=== PATIENT | female | born 1980 | race Caucasian/White ===

== ENCOUNTER 2021-04-01 19:55 | Inpatient (IN) ==
[2021-04-01] MEDS ORDERED: 0.9 % Sodium Chloride 250 ML ONE (20:26)
[2021-04-01] MEDS ORDERED: *HR* EPINEPHrine 1 MG/10 ML SYRINGE ONE (20:33)
[2021-04-01 20:34] VITALS: TEMP 0
[2021-04-01 20:40] LABS: Basophils % 0.2 %; Eosinophils % 0.3 %; Hematocrit 38.3 % (35.3-44.9); Hemoglobin 11.6 g/dL (11.5-15.4); Immature Granulocytes % 13.8 % (0-4); Lymphocytes # 5.2 K/mcL (0.6-4.6); Lymphocytes % 38.2 %; Mean Corpuscular HGB Conc 30.3 g/dL (31.6-35.5); Mean Corpuscular Hemoglobin 30.5 pg (28.0-33.3); Mean Corpuscular Volume 100.8 fL (83.0-100.0); Mean Platelet Volume 10.5 fL (9.4-12.4); Monocytes # 0.6 K/mcL (0.0-1.3); Monocytes % 4.3 %; Neutrophils # 5.9 K/mcL (1.6-8.9); Nucleated Red Blood Cells 0.8 /100 WBC (0); Platelet Count 227 K/mcL (140-400); Red Cell Distribution Width 15.3 % (11.5-14.5); Segmented Neutrophils % 43.2 %; White Blood Count 13.6 K/mcL (4.3-11.1)
[2021-04-01] MEDS ORDERED: Amiodarone Premix 360 MG/200 ML BAG IVC ONE (20:40)
[2021-04-01] MEDS ORDERED: *HR* Heparin 10,000 UNIT/10 ML VIAL ONE (20:48)
[2021-04-01] MEDS ORDERED: Heparin 1,000 UNITS/500 mL 500 ML ONE (20:48)
[2021-04-01] MEDS ORDERED: ISOVUE-370 200 ML INFUS..BTL ONE (20:48)
[2021-04-01] MEDS ORDERED: 0.9 % Sodium Chloride 2,000 ML ONE (20:48)
[2021-04-01] MEDS ORDERED: Nitroglycerin 1,000 MCG/5 ML VIAL IV ONE (20:48)
[2021-04-01] MEDS ORDERED: D5% in Water 1,000 ML IVC ONE (20:56)
[2021-04-01] MEDS ORDERED: *HR* Midazolam HCl 2 MG/2 ML VIAL ONE (20:58)
[2021-04-01] MEDS ORDERED: Tirofiban 12.5 MG/250ML 0 MG/0 ML BAG ONE (20:58)
[2021-04-01] MEDS ORDERED: *HR* FentaNYL (PF) 100 MCG/2 ML VIAL ONE (20:58)
[2021-04-01] MEDS ORDERED: D5% in Water 250 ML ONE ×2 (21:09→22:10)
[2021-04-01] MEDS ORDERED: EPINEPHrine 1 MG/ML VIAL ONE ×2 (21:09→22:10)
[2021-04-01] MEDS ORDERED: Sodium Bicarbonate 150 MEQ in D5% in Water 1,000 ML IVC ONE (21:15)
[2021-04-01] MEDS ORDERED: EPINEPHrine 1 MG in D5% in Water 250 ML IVC SCH (21:15)
[2021-04-01 21:17] LABS: Reactive Lymphocytes Present (Not Present)
[2021-04-01 21:18] LABS: Alanine Aminotransferase 146 Units/L (7-52); Albumin 2.7 g/dL (3.5-5.7); Albumin/Globulin Ratio 1.1 (1.1-2.2); Alkaline Phosphatase 124 Units/L (34-104); Aspartate Amino Transferase 295 Units/L (13-39); BUN/Creatinine Ratio 13 (6-26); Bilirubin,Total 0.3 mg/dL (0.3-1.0); Blood Urea Nitrogen 15 mg/dL (6-20); Carbon Dioxide 14 mEq/L (23-29); Chloride 100 mEq/L (98-107); Globulin 2.4 g/dL (2.4-3.5); Glucose 401 mg/dL (70-105); Magnesium 6.2 mg/dL (1.6-2.6); Osmolality,Calculated 308 (280-300); Phosphorous 12.8 mg/dL (2.7-4.5); Potassium 2.8 mEq/L (3.5-5.1); Sodium 140 mEq/L (136-145); Total Protein 5.1 g/dL (6.4-8.9); eGFR For African Americans > 60 (> 60); eGFR For Non-African Americans 50 (> 60)
[2021-04-01] MEDS ORDERED: *HR* Heparin 5,000 UNIT/ML VIAL IVP ONE (21:30)
[2021-04-01 21:31] LABS: Troponin I 0.91 ng/mL (< 0.04)
[2021-04-01] MEDS ORDERED: 0.9 % Sodium Chloride 500 ML IVC ONE (21:50)
[2021-04-01 22:04] LABS: INR 1.2; Prothrombin Time 13.7 Seconds (9.4-12.1)
[2021-04-01 22:07] LABS: Activated Partial Thrombo Time 40.1 Seconds (26.0-36.0)
[2021-04-01] MEDS ORDERED: 0.9 % Sodium Chloride 3,000 ML ONE (22:25)
[2021-04-01] MEDS: Norepinephrine 4 MG/254 ML IV.SOLN IVC SCH (23:09)
[2021-04-01] MEDS: EPINEPHrine 5 MG in D5% in Water 250 ML IVC SCH (23:22)
[2021-04-01] MEDS ORDERED: Perflutren Lipid Microsphere 1.3 ML in 0.9 % Sodium Chloride 8.7 ML IVP PRN (23:26)
[2021-04-01] MEDS ORDERED: Ondansetron 4 MG/2 ML VIAL IVP PRN (23:27)
[2021-04-01] MEDS ORDERED: Naloxone 0.4 MG/ML INJ IVP PRN (23:27)
[2021-04-01] MEDS ORDERED: Acetaminophen 650 MG RECTAL SUPP RC PRN (23:27)
[2021-04-01] MEDS ORDERED: Pantoprazole 40 MG VIAL IVP SCH (23:32)
[2021-04-01] MEDS ORDERED: D5% in Water 1,000 ML IVC PRN (23:39)
[2021-04-01] MEDS ORDERED: *HR* Dextrose 50 % in Water (Syg) 50 ML SYRINGE IVP PRN (23:39)
[2021-04-01] MEDS ORDERED: Dextrose Gel 15 GM/37.5 ML TUBE PO PRN ×2 (23:39)
[2021-04-01] MEDS ORDERED: *HR* Meperidine 25 MG/ML SYRINGE IVP PRN (23:42)
[2021-04-01 23:44] LABS: ABG Base Excess -20 mEq/L (-2 to 3); ABG HCO3 10 mEq/L (21-27); ABG Oxygen Saturation 100 % (95-98); ABG PCO2 40 mmHg (35-45); ABG PH 6.99 pH Units (7.32-7.45); ABG PO2 436 mmHg (85-104); ABG TCO2 11 mEq/L (20-26); Blood Gas Modality ASSIST CONTROL; Blood Gas VT 500 cc
[2021-04-01] MEDS ORDERED: Cisatracurium 200 MG in 0.9 % Sodium Chloride 180 ML IVC SCH (23:45)
[2021-04-01] MEDS ORDERED: Isovue-370 500 ML BOTTLE IVP ONE (23:49)
[2021-04-02] MEDS ORDERED: Artificial Tears SOLN 15 ML BOTTLE BOTH EYES SCH
[2021-04-02] MEDS ORDERED: Vasopressin 40 UNIT in D5% in Water 100 ML IVC SCH (00:15)
[2021-04-02] MEDS: Norepinephrine 4 MG/254 ML IV.SOLN IVC SCH ×2 (00:16→01:40)
[2021-04-02] MEDS ORDERED: Piperacillin/Tazobactam 3.375 GM in 0.9 % Sodium Chloride Mini Bag 100 ML IVPB SCH (00:28)
[2021-04-02 00:31] LABS: Nucleated Red Blood Cells 0.7 /100 WBC (0); Red Cell Distribution Width 15.3 % (11.5-14.5)
[2021-04-02 00:33] LABS: Hematocrit 22.9 % (35.3-44.9); Hemoglobin 7.2 g/dL (11.5-15.4); Mean Corpuscular HGB Conc 31.4 g/dL (31.6-35.5); Mean Corpuscular Hemoglobin 31.7 pg (28.0-33.3); Mean Corpuscular Volume 100.9 fL (83.0-100.0); Platelet Count 316 K/mcL (140-400); Red Blood Count 2.27 M/mcL (3.82-4.97)
[2021-04-02] MEDS ORDERED: Phenylephrine 50 MG in 0.9 % Sodium Chloride 250 ML IVC SCH (00:45)
[2021-04-02 00:51] LABS: White Blood Count 31.6 K/mcL (4.3-11.1)
[2021-04-02] MEDS ORDERED: Vancomycin 1,500 MG/265 ML IV.SOLN IVPB ONE (00:51)
[2021-04-02 00:55] LABS: INR 3.5; Prothrombin Time 38.7 Seconds (9.4-12.1)
[2021-04-02] MEDS: EPINEPHrine 5 MG in D5% in Water 250 ML IVC SCH (00:57)
[2021-04-02 01:08] LABS: Adenovirus Not Detected (Not Detect); Bordetella Pertussis Not Detected (Not Detect); Chlamydophila pneumoniae Not Detected (Not Detect); Coronavirus 229E Not Detected (Not Detect); Coronavirus HKU1 Not Detected (Not Detect); Coronavirus NL63 Not Detected (Not Detect); Coronavirus OC43 Not Detected (Not Detect); Human Metapneumovirus Not Detected (Not Detect); Human Rhinovirus/Enterovirus Not Detected (Not Detect); Influenza A Subtype 2009 H1 Not Detected (Not Detect); Influenza B Not Detected (Not Detect); Mycoplasma pneumoniae Not Detected (Not Detect); Parainfluenza Virus 1 Not Detected (Not Detect); Parainfluenza Virus 2 Not Detected (Not Detect); Parainfluenza Virus 3 Not Detected (Not Detect); Parainfluenza Virus 4 Not Detected (Not Detect); Respiratory Syncytial Virus DETECTED (Not Detect); SARS-CoV-2 Not Detected (Not Detect)
[2021-04-02 01:10] LABS: Troponin I > 73.00 ng/mL (< 0.04)
[2021-04-02 01:11] LABS: Lymphocytes # 8.2 K/mcL (0.6-4.6); Neutrophils # 21.5 K/mcL (1.6-8.9)
[2021-04-02 01:12] LABS: Anisocytosis 1+ (Not Present); Platelet Estimate Normal (Normal)
[2021-04-02] MEDS ORDERED: Sodium Bicarbonate 150 MEQ in D5% in Water 1,000 ML IVC SCH (01:45)
[2021-04-02 01:58] LABS: Thyroid Stimulating Hormone 1.348 mcIU/mL (0.340-5.600)
[2021-04-02 02:23] LABS: Alanine Aminotransferase 118 Units/L (7-52); Alkaline Phosphatase 180 Units/L (34-104); Aspartate Amino Transferase 387 Units/L (13-39); BUN/Creatinine Ratio 11 (6-26); Bilirubin,Total 0.5 mg/dL (0.3-1.0); Blood Urea Nitrogen 15 mg/dL (6-20); C-Reactive Protein 13 mg/L (Less than 10); Calcium 7.7 mg/dL (8.6-10.3); Carbon Dioxide 10 mEq/L (23-29); Chloride 98 mEq/L (98-107); Glucose 650 mg/dL (70-105); Magnesium 3.6 mg/dL (1.6-2.6); Osmolality,Calculated 315 (280-300); Phosphorous 11.1 mg/dL (2.7-4.5); Potassium 3.3 mEq/L (3.5-5.1); Sodium 137 mEq/L (136-145); Total Protein 3.1 g/dL (6.4-8.9); eGFR For African Americans 51 (> 60); eGFR For Non-African Americans 42 (> 60)
[2021-04-02] MEDS ORDERED: Amiodarone Premix 360 MG/200 ML BAG IVC SCH (03:12)
[2021-04-02 03:23] VITALS: BP 80/32; PULSE 104; O2SAT 98
[2021-04-02 03:53] LABS: Albumin 1.7 g/dL (3.5-5.7); Albumin/Globulin Ratio 1.2 (1.1-2.2); Creatine Kinase 2241 Units/L (30-223); Globulin 1.4 g/dL (2.4-3.5)
[2021-04-02] MEDS ORDERED: Chlorhexidine Rinse 15 ML MOUTHWASH MM SCH (09:00)
== END 2021-04-02 02:00 | disposition expired | DRG 190 ==
LOC: EMEROOARM 19:55 → ICNU 21:32 → SUATTDRO 22:22
PROVIDERS: ADMIT Internal Medicine; ATTEND Internal Medicine